=== PATIENT | male | born 1975 | race Caucasian/White ===

== ENCOUNTER 2017-07-11 21:42 | Emergency (ER) | payer MEDICAID ==
[~2017-07-11] VITALS: Ht 177.8 cm; Wt 124.3 kg
--- NOTE | 2017-07-11 21:51 | NUR ---
CALLED PT TO TRIAGE AND NO ANSWER
--- NOTE | 2017-07-11 21:51 | NUR ---
Angie paiz in ED - 07/11/17 at 2214 by [email or web address] [facility] Side rails up. Report given to PAUL PERERA.
[2017-07-11 22:14] VITALS: BP_SYST 159
--- NOTE | 2017-07-11 22:14 | NUR ---
Patient to ER bed 6 to gown for evaluation. Side rails up. Report given to PAUL JULIEN.
--- NOTE | 2017-07-11 22:15 | NUR ---
Patient AAO x4, sitting in bed c/p sore throat 02/09 that has increased in pain in the last month,has difficulty swallowing, patient states throat pain has been present x 1 year. No acute distress noted, denies chest pain, denies N/V/D, Denies shortness of breath. Will continue to monitor.
--- NOTE | 2017-07-11 22:30 | NUR ---
OTF Chang at bedside examining patient.
[2017-07-11 23:59] VITALS: BP_SYST 135
--- NOTE | 2017-07-11 23:59 | NUR ---
Patient given written and verbal discharge instructions and verbalizes understanding. ER MD Dr. Cain discussed with patient the results and treatment provided. Patient in stable condition. ID arm band removed. Rx of Promethazine with codeine and prednisone given. Patient educated on pain management and to follow up with PMD. Pain Scale 0/10. Opportunity for questions provided and answered.
== END 2017-07-11 23:59 | disposition home or self-care (01) ==
LOC: SED 21:42
DX: J03.80 Acute tonsillitis due to other specified organisms (principal); B97.89 Other viral agents as the cause of diseases classified elsewhere; E11.9 Type 2 diabetes mellitus without complications; I10 Essential (primary) hypertension
CPT/HCPCS: 36415; 86403; 87081; 99284

== ENCOUNTER 2020-01-03 05:28 | Emergency (ER) | payer MEDICAID ==
[~2020-01-03] VITALS: Ht 175.3 cm; Wt 117.9 kg
[2020-01-03 05:28] VITALS: BP_SYST 122
[2020-01-03 06:27] LABS: BASOPHILS # (AUTO) 0.1 K/uL (0.0-0.2); BASOPHILS % (AUTO) 1.2 % (0.0-2.0); EOSINOPHILS # (AUTO) 0.5 K/uL (0.0-0.4); EOSINOPHILS % (AUTO) 5.2 % (0.0-4.0); HEMATOCRIT 45.1 % (36-54); HEMOGLOBIN 15.2 g/dL (14.0-18.0); LYMPHOCYTES # (AUTO) 3.1 K/uL (1.0-5.5); LYMPHOCYTES % (AUTO) 35.5 % (20.5-51.5); MEAN CORPUSCULAR HEMOGLOBIN 28 pg (27-31); MEAN CORPUSCULAR HGB CONC 34 % (32-36); MEAN CORPUSCULAR VOLUME 82 fL (79.0-98.0); MONOCYTES # (AUTO) 0.8 K/uL (0.0-1.0); MONOCYTES % (AUTO) 9.3 % (1.7-9.3); NEUTROPHILS # (AUTO) 4.3 K/uL (1.8-7.7); NEUTROPHILS % (AUTO) 48.8 % (40.0-70.0); PLATELET COUNT (AUTO) 280 K/uL (130-430); RED CELL DISTRIBUTION WIDTH 14.2 % (9.0-15.0); WHITE BLOOD COUNT (AUTO) 8.7 K/uL (4.8-10.8)
[2020-01-03 06:31] LABS: CREATININE 1.01 mg/dL (0.55-1.30); POTASSIUM 3.8 mmol/L (3.5-5.1)
[2020-01-03 06:32] LABS: BILIRUBIN,URINE NEGATIVE (NEGATIVE); CLARITY/URINE CLEAR (CLEAR); COLOR,URINE YELLOW (YELLOW); GLUCOSE,URINE NEGATIVE (NEGATIVE); KETONES,URINE NEGATIVE (NEGATIVE); LEUKOCYTE ESTERASE ,URINE NEGATIVE (NEGATIVE); NITRITE, URINE NEGATIVE (NEGATIVE); PH,URINE 6.5 (5.0-8.0); PROTEIN URINE NEGATIVE (NEGATIVE)
[2020-01-03 06:36] LABS: BLOOD, URINE TRACE (NEGATIVE)
[2020-01-03 06:37] LABS: ALBUMIN 3.5 g/dL (3.4-4.8); TOTAL BILIRUBIN 0.4 mg/dL (0.0-1.0)
[2020-01-03 06:51] LABS: BACTERIA,URINE None Seen /HPF (None Seen); WBC,URINE 0-3 /HPF (0-3)
[2020-01-03] MEDS ORDERED: FUROSEMIDE 20 MG TABLET PO ONE (07:00)
[2020-01-03 07:05] VITALS: BP_SYST 120
== END 2020-01-03 07:05 | disposition home or self-care (01) ==
LOC: SED 05:28
DX: R60.0 Localized edema (principal); M25.571 Pain in right ankle and joints of right foot; I10 Essential (primary) hypertension; E11.9 Type 2 diabetes mellitus without complications
CPT/HCPCS: 36415; 71046-TC; 80053; 81000-TC; 83880; 85025; 99284

== ENCOUNTER 2020-12-15 13:20 | Inpatient (IN) | payer MEDICAID, SELFPAY ==
[~2020-12-15] VITALS: Ht 175.3 cm; Wt 121.1 kg
[2020-12-15 13:20] VITALS: BP_SYST 133
[2020-12-15 14:00] LABS: EOSINOPHILS # (AUTO) 0.3 K/uL (0.0-0.4); EOSINOPHILS % (AUTO) 2.7 % (0.0-4.0); HEMATOCRIT 42.7 % (36-54); HEMOGLOBIN 14.3 g/dL (14.0-18.0); LYMPHOCYTES # (AUTO) 3.2 K/uL (1.0-5.5); LYMPHOCYTES % (AUTO) 32.3 % (20.5-51.5); MEAN CORPUSCULAR HEMOGLOBIN 27 pg (27-31); MEAN CORPUSCULAR HGB CONC 33 % (32-36); MEAN CORPUSCULAR VOLUME 82 fL (79.0-98.0); MONOCYTES # (AUTO) 0.7 K/uL (0.0-1.0); MONOCYTES % (AUTO) 7.1 % (1.7-9.3); PLATELET COUNT (AUTO) 283 K/uL (130-430); RED BLOOD CELL COUNT(AUTO) 5.21 MIL/uL (4.2-6.2); WHITE BLOOD COUNT (AUTO) 9.8 K/uL (4.8-10.8)
[2020-12-15 14:02] LABS: BASOPHILS % (AUTO) 0.2 % (0.0-2.0); NEUTROPHILS % (AUTO) 57.7 % (40.0-70.0)
[2020-12-15 14:03] LABS: NEUTROPHILS # (AUTO) 5.7 K/uL (1.8-7.7)
[2020-12-15 14:13] LABS: CALCIUM 8.2 mg/dL (8.4-11.0); CREATININE 1.08 mg/dL (0.55-1.30)
[2020-12-15 14:19] LABS: ALBUMIN 3.4 g/dL (3.4-4.8); TOTAL BILIRUBIN 0.4 mg/dL (0.0-1.0)
[2020-12-15 14:25] LABS: INR 1.1 (0.80-1.20); PROTHROMBIN TIME 11.1 SECS (9.5-12.5)
[2020-12-15] MEDS ORDERED: ENOXAPARIN SODIUM 120 MG/0.8 ML SYRINGE SUBCUT ONE (15:00)
[2020-12-15] MEDS ORDERED: ASPIRIN 325 MG TABLET PO ONE (15:00)
[2020-12-15] MEDS ORDERED: NITROGLYCERIN 1 INCH (GM) OINT. TP ONE (15:00)
[2020-12-15 16:50] VITALS: BP_SYST 119
[2020-12-15] MEDS ORDERED: ACETAMINOPHEN 325 MG TABLET PO PRN (18:00)
[2020-12-15] MEDS ORDERED: FAMOTIDINE 20 MG TABLET PO ONE (19:00)
[2020-12-15 20:00] VITALS: BP_SYST 109
[2020-12-15] MEDS ORDERED: INSULIN LISPRO SLIDING SCALE 100 UNITS/ML VIAL (humaLOG) SUBCUT PRN (22:15)
[2020-12-15] MEDS ORDERED: NITROGLYCERIN 0.4 MG TAB.SUBL SL PRN (22:15)
[2020-12-16 00:12] VITALS: BP_SYST 137
[2020-12-16 06:38] LABS: CALCIUM 8.4 mg/dL (8.4-11.0); CREATININE 0.98 mg/dL (0.55-1.30); POTASSIUM 4.4 mmol/L (3.5-5.1)
[2020-12-16 08:00] VITALS: BP_SYST 129
[2020-12-16] MEDS ORDERED: FAMOTIDINE 20 MG TABLET PO SCH (09:00)
[2020-12-16] MEDS ORDERED: ASPIRIN 81 MG TABLET(ECOTRIN) PO SCH (09:00)
[2020-12-16] MEDS ORDERED: ASPI-1393 PO (11:23)
[2020-12-16] MEDS ORDERED: PRAV40TA PO (11:23)
[2020-12-16] MEDS ORDERED: AMLO10TA88 PO (11:23)
[2020-12-16 12:10] VITALS: BP_SYST 112
[2020-12-16 16:10] VITALS: BP_SYST 137
[2020-12-16 16:11] VITALS: BP_SYST 112
== END 2020-12-16 17:10 | disposition home or self-care (01) | DRG 203 ==
LOC: SED 13:20 → STU 15:47
PROVIDERS: ADMIT Internal Medicine; ATTEND Internal Medicine
DX: R07.89 Other chest pain (principal); E66.01 Morbid (severe) obesity due to excess calories; E11.9 Type 2 diabetes mellitus without complications; I10 Essential (primary) hypertension; Z20.822 Contact with and (suspected) exposure to COVID-19; E78.5 Hyperlipidemia, unspecified; F17.210 Nicotine dependence, cigarettes, uncomplicated; Z68.39 Body mass index [BMI] 39.0-39.9, adult
CPT/HCPCS: 36415; 71045; 80048; 80053; 80061; 82962; 83880; 84443-TC; 84484; 85025; 85379; 85610-TC; 85730-TC; 93005; 93306; 96372; 99291; G0378; J1650

== ENCOUNTER 2020-12-21 09:46 | Emergency (ER) | payer MEDICAID, SELFPAY ==
[~2020-12-21] VITALS: Ht 175.3 cm; Wt 121.1 kg
[2020-12-21 09:46] VITALS: BP_SYST 136
[~2020-12-21 09:46] MED LIST: AMLO10TA88 PO; ASPI-1393 PO; PRAV40TA PO
[2020-12-21] MEDS ORDERED: BACL20 PO (10:46)
[2020-12-21] MEDS ORDERED: ACET325T53 PO (10:46)
[2020-12-21] MEDS ORDERED: CEPH250C PO (10:46)
[2020-12-21 11:35] VITALS: BP_SYST 139
[2020-12-21] MEDS ORDERED: CLOT24CR2 TP (20:20)
[2020-12-21] MEDS ORDERED: HYDR-3919 PO (20:20)
== END 2020-12-21 11:35 | disposition home or self-care (01) ==
LOC: SED 09:46
DX: L03.032 Cellulitis of left toe (principal); I10 Essential (primary) hypertension; E11.9 Type 2 diabetes mellitus without complications; Z79.899 Other long term (current) drug therapy; Z79.82 Long term (current) use of aspirin
CPT/HCPCS: 99283

== ENCOUNTER 2020-12-21 19:54 | Emergency (ER) | payer MEDICAID ==
[~2020-12-21] VITALS: Ht 175.3 cm; Wt 121.1 kg
[~2020-12-21 19:54] MED LIST changes: +ACET325T53 PO; +BACL20 PO; +CEPH250C PO
[2020-12-21 20:00] VITALS: BP_SYST 137
[2020-12-21] MEDS ORDERED: KETOROLAC TROMETHAMINE 60 MG/2 ML VIAL IM ONE (20:15)
[2020-12-21] MEDS ORDERED: HYDR-3919 PO (20:20)
[2020-12-21] MEDS ORDERED: CLOT24CR2 TP (20:20)
[2020-12-21 20:44] VITALS: BP_SYST 137
== END 2020-12-21 20:00 | disposition home or self-care (01) ==
LOC: SED 19:54
DX: L03.032 Cellulitis of left toe (principal); I10 Essential (primary) hypertension; E11.9 Type 2 diabetes mellitus without complications; E78.5 Hyperlipidemia, unspecified; Z79.899 Other long term (current) drug therapy
CPT/HCPCS: 96372; 99283; J1885